=== PATIENT | female | born 1980 | race African-American/Black ===

== ENCOUNTER 2020-03-15 13:27 | Emergency (ER) | payer OTHER ==
--- NOTE | 2020-03-15 16:17 | ED Physician Documentation ---
History of Present Illness - Stated complaint Stated Complaint: R EYE SWELLING - Chief complaint Chief Complaint: Heent - Additonal information Additional information: 39-year-old female presents to the emergency department for evaluation of right eye and now lower eyelid swelling. She reports that it began about 5 days ago. She states that the eyelid hurts when she closes her eyes and when she wakes up in the morning she often has yellow crusting and matting on her lashes. She denies any vision changes blurry vision or visual field deficits. She denies any headache nausea vomiting or diarrhea. She does wear corrective lenses and has not placed any contact lenses in her eyes for quite some time Review of Systems Constitutional: reports: Reviewed and negative Eyes: reports: Discharge, Other (righ alaina and lower lid swelling). denies: Loss of vision, Decreased vision, Photophobia, Irritation Ears: denies: Loss of hearing Nose: denies: Rhinorrhea / runny nose, Congestion, Epistaxis Throat: denies: Dental pain / toothache, Oral lesions / sores, Sore throat, Swollen tonsils, Reviewed and negative Cardiac: denies: Chest pain / pressure, Palpitations Respiratory: denies: Dyspnea GI: denies: Abdominal Pain, Abdominal Swelling, Constipation, Diarrhea : denies: Frequency Skin: denies: Rash, Lesions, Abrasion (s) Musculoskeletal: denies: Neck pain, Back pain, Extremity pain PD PAST MEDICAL HISTORY - Past Medical History Past Medical History: No - Past Surgical History Past Surgical History: Yes - Present Medications Home Medications: Ambulatory Orders Medication Instructions Recorded Confirmed Clindamycin HCl [Clindamycin 150MG 450 mg PO TID 7 Days #63 capsule 03/15/20 CAP] - Allergies Allergies/Adverse Reactions: Allergies Allergy/AdvReac Type Severity Reaction Status Date / Time No Known Drug Allergies Allergy Verified 03/15/20 13:38 - Social History Does the pt smoke?: No Smoking Status: Never smoker Does the pt drink ETOH?: No Does the pt have substance abuse?: No - Immunizations Immunizations are current?: Yes PD ED PE NORMAL - General General: Alert and oriented X 3, No acute distress, Well developed/nourished - HEENT HEENT: Atraumatic, PERRL, EOMI, Ears normal, Moist mucous membranes, Pharynx benign, Other (swelling of the right upper and now lower eye lid with mid erythema. EOMI preserved. No pain with eye movement. no proptosis) - Neck Neck: Supple, no meningeal sign, No adenopathy - Cardiac Cardiac: RRR, No murmur, No gallop - Respiratory Respiratory: No respiratory distress, Clear bilaterally - Abdomen Abdomen: Normal bowel sounds, Soft, Non tender, Non distended Results - Vitals Vitals: Vital Signs - 24 hr 03/15/20 13:38 Temperature 36.6 C Heart Rate 67 Respiratory 16 Rate Blood Pressure 138/85 H O2 Saturation 99 Oxygen O2 Source Room air PD MEDICAL DECISION MAKING - ED course Complexity details: considered differential, d/w patient, d/w family ED course: 39 year old female presents to the emergency department with 5 days of right upper and lower eyelid swelling. She has no fevers no proptosis and no pain with extraocular eye movements. She does not have any findings consistent with conjunctivitis or corneal abrasion. At this time I feel that she is developing periorbital cellulitis but I do not feel that she has any indications of orbital cellulitis. I will start her on clindamycin 450 mg 3 times a day for 10 days. Advise very close follow-up with her primary care provider or return to the emergency department if symptoms not improving Departure - Departure Disposition: 01 Home, Self Care Clinical Impression: Periorbital cellulitis of right eye Condition: Stable Record reviewed to determine appropriate education?: Yes Instructions: ED Cellulitis Facial Follow-Up: AVELINO HYMAN [Primary Care Provider] - Prescriptions: Clindamycin HCl [Clindamycin 150MG CAP] 450 mg PO TID 7 Days #63 capsule Comments: This swelling and redness around your eye looks like a skin infection. I would like you to take the clindamycin 3 times a day for 7 days. Please continue to use a warm compress. With the antibiotics I would expect decreased swelling and redness over the next 48 to 72 hours. If not improving, you have fevers worsening swelling or pain when you move your eye please return immediately to the ER
[2020-03-15 16:32] VITALS: BP 141/81
== END 2020-03-15 16:30 | disposition home or self-care (01) ==
LOC: ED 13:27
DX: L03.213 Periorbital cellulitis (principal)
CPT/HCPCS: 99282; 99284